=== PATIENT | female | born 1985 | race African-American/Black ===

== ENCOUNTER 2024-03-24 10:40 | Day surgery (SDC) | payer BC ==
[2024-03-09 13:35] VITALS: BMI 40.3
[2024-03-24 11:12] VITALS: RESP 16
[2024-03-24 12:31] VITALS: PULSE 78; TEMP 97.3
[2024-03-24 12:55] VITALS: BP 101/68
== END 2024-03-24 12:45 | disposition home or self-care (01) ==
LOC: FASU-ENDO 10:40
PROVIDERS: ATTEND Internal Medicine Gastroenterology
PROC: 0DB68ZX Excision of Stomach, Via Natural or Artificial Opening Endoscopic, Diagnostic (ICD-10-PCS; 2024-03-24)
PROC: 0DB48ZX Excision of Esophagogastric Junction, Via Natural or Artificial Opening Endoscopic, Diagnostic (ICD-10-PCS; 2024-03-24)
PROC: 0DB98ZX Excision of Duodenum, Via Natural or Artificial Opening Endoscopic, Diagnostic (ICD-10-PCS; principal; 2024-03-24 11:52)
DX: K29.50 Unspecified chronic gastritis without bleeding (principal); K31.9 Disease of stomach and duodenum, unspecified; R13.10 Dysphagia, unspecified
CPT/HCPCS: 81025; 88305-TC; 88342-TC